=== PATIENT | female | born 1935 | race Caucasian/White ===

== ENCOUNTER → 2016-10-10 | Outpatient (CLI) | payer OTHER, BC | LOC: BHLMT 14:45 | PROVIDERS: ATTEND Internal Medicine Cardiovascular Disease | DX: I48.0 Paroxysmal atrial fibrillation (principal); I10 Essential (primary) hypertension; R06.02 Shortness of breath; Z79.01 Long term (current) use of anticoagulants; G47.30 Sleep apnea, unspecified | CPT/HCPCS: 93005-PO ==

== ENCOUNTER → 2016-11-08 | Outpatient (CLI) | payer OTHER, BC | LOC: BHLMT 14:15 | PROVIDERS: ATTEND Internal Medicine Cardiovascular Disease | DX: I48.0 Paroxysmal atrial fibrillation (principal); R06.09 Other forms of dyspnea; I10 Essential (primary) hypertension; Z79.01 Long term (current) use of anticoagulants; G47.33 Obstructive sleep apnea (adult) (pediatric) | CPT/HCPCS: 93005-PO ==

== ENCOUNTER → 2016-11-25 | Outpatient (CLI) | payer OTHER, BC | LOC: BHFA 14:15 | PROVIDERS: ATTEND Internal Medicine Interventional Cardiology | DX: I48.0 Paroxysmal atrial fibrillation (principal); I10 Essential (primary) hypertension ==

== ENCOUNTER → 2016-12-01 | Outpatient (CLI) | payer OTHER, BC | LOC: BHLMT 13:15 | PROVIDERS: ATTEND Internal Medicine Cardiovascular Disease | DX: I48.0 Paroxysmal atrial fibrillation (principal); R06.02 Shortness of breath; I10 Essential (primary) hypertension | CPT/HCPCS: 93005-PO ==

== ENCOUNTER → 2016-12-12 | Outpatient (CLI) | payer OTHER, BC | LOC: BHLMT 13:00 | PROVIDERS: ATTEND Internal Medicine Cardiovascular Disease | DX: I48.0 Paroxysmal atrial fibrillation (principal); G47.33 Obstructive sleep apnea (adult) (pediatric); I10 Essential (primary) hypertension; Z79.01 Long term (current) use of anticoagulants | CPT/HCPCS: 93005-PO ==

== ENCOUNTER 2016-12-28 11:57 | Day surgery (SDC) | payer OTHER, BC ==
[2016-12-28] MEDS ORDERED: MIDAZOLAM 2 MG/2 ML VIAL IVP ONE (12:01)
[2016-12-28] MEDS ORDERED: PROPOFOL 200 MG/20 ML VIAL IVP ONE (12:01)
[2016-12-28] MEDS ORDERED: BENZOCAINE UNIT DOSE SPRAY HURRICAINE MM ONE (12:01)
[2016-12-28] MEDS ORDERED: NS 500 ML IV ONE (12:01)
[2016-12-28] MEDS ORDERED: fentaNYL 100 MCG/2 ML INJ IVP ONE (12:01)
--- NOTE | 2016-12-28 12:17 | CPEKG ---
Heart Rate: 103 RR Interval: 583 QRSD Interval: 98 QT Interval: 376 QTC Interval: 492 QRS [place]: -70 T Wave [place]: 71 EKG Severity - ABNORMAL ECG - EKG Impression: ATRIAL FIBRILLATION/FLUTTER EKG Impression: LEFT ANTERIOR FASCICULAR BLOCK EKG Impression: LOW VOLTAGE IN FRONTAL LEADS EKG Impression: BORDERLINE PROLONGED QT INTERVAL Electronically Signed By: Joshua Bowden 29-Dec-2016 12:03:47
[2016-12-28] MEDS ORDERED: ATROPINE SULFATE 1 MG/10 ML SYR ONE (12:27)
[2016-12-28 12:47] LABS: ANION GAP 13 mEq/L (8-16); CALCIUM 9.5 mg/dL (8.5-10.4); CARBON DIOXIDE 23 mEq/l (22-31); CHLORIDE 103 mEq/L (97-110); CREATININE 1.7 mg/dL (0.6-1.0); GLOMERULAR FILTRATION RATE 29; GLUCOSE 115 mg/dL (70-100); MAGNESIUM 2.1 mg/dL (1.6-2.3); POTASSIUM 3.9 mEq/L (3.5-5.2); SODIUM 139 mEq/L (134-144)
[2016-12-28 12:49] LABS: INR 1.88 (0.83-1.16); PROTIME(PATIENT) 21.7 SEC (12.0-15.0)
[2016-12-28 12:50] LABS: APTT 29.2 SEC (23.0-38.0)
[2016-12-28] MEDS ORDERED: LIDOCAINE 1% 5 ML SDV ONE (12:59)
--- NOTE | 2016-12-28 13:34 | CPEKG ---
Heart Rate: 76 RR Interval: 789 P-R Interval: 176 QRSD Interval: 92 QT Interval: 432 QTC Interval: 486 P [place]: 68 QRS [place]: -51 T Wave [place]: 12 EKG Severity - ABNORMAL ECG - EKG Impression: SINUS RHYTHM EKG Impression: PROBABLE INFERIOR INFARCT, AGE INDETERMINATE EKG Impression: BORDERLINE PROLONGED QT INTERVAL EKG Impression: IN COMPARISON TO PRIOR ECG, SINUS RHYTHM HAS REPLACED ATRIAL FIB/FLUTTER Electronically Signed By: Joshua Bowden 29-Dec-2016 12:04:11
--- NOTE | 2016-12-28 15:33 | PDTEE1 ---
ZORAN Cardioversion Procedure Procedure: Electrical Cardioversion, Transesophageal Echo Indications: Atrial Fibrillation Consent: Signed and in Chart Anticoagulation: Warfarin Procedural Details: Pads were placed in anterior-posterior position. ZORAN probe was advanced and standard images obtained. There is no evidence of left atrial or left atrial appendage thrombus. Synchronized cardioversion attempt #1: 200J Results: Normal sinus rhythm Conclusions: Successful ZORAN Cardioversion
== END 2016-12-28 14:51 | disposition home or self-care (01) ==
LOC: FCATH 11:57
PROVIDERS: ATTEND Internal Medicine Interventional Cardiology
PROC: 5A2204Z Restoration of Cardiac Rhythm, Single (ICD-10-PCS; principal; 2016-12-28)
PROC: B245ZZ4 Ultrasonography of Left Heart, Transesophageal (ICD-10-PCS; principal; 2016-12-28)
DX: I48.0 Paroxysmal atrial fibrillation (principal); I48.92 Unspecified atrial flutter; I50.9 Heart failure, unspecified; I12.9 Hypertensive chronic kidney disease with stage 1 through stage 4 chronic kidney disease, or unspecified chronic kidney disease; J45.909 Unspecified asthma, uncomplicated; N18.9 Chronic kidney disease, unspecified; G47.33 Obstructive sleep apnea (adult) (pediatric); Z79.01 Long term (current) use of anticoagulants; Z96.651 Presence of right artificial knee joint
CPT/HCPCS: J0461; J2704

== ENCOUNTER → 2017-01-03 | Outpatient (CLI) | payer OTHER, BC | LOC: BHLMT 10:30 | PROVIDERS: ATTEND Internal Medicine Cardiovascular Disease | DX: I10 Essential (primary) hypertension (principal); Z79.01 Long term (current) use of anticoagulants; I48.0 Paroxysmal atrial fibrillation; N18.4 Chronic kidney disease, stage 4 (severe); G47.33 Obstructive sleep apnea (adult) (pediatric) ==

== ENCOUNTER → 2017-01-05 | Outpatient (CLI) | payer OTHER, BC | LOC: BHLMT 14:45 | PROVIDERS: ATTEND Internal Medicine Cardiovascular Disease | DX: I48.0 Paroxysmal atrial fibrillation (principal); I10 Essential (primary) hypertension; G47.33 Obstructive sleep apnea (adult) (pediatric); Z79.01 Long term (current) use of anticoagulants | CPT/HCPCS: 93005-PO ==

== ENCOUNTER → 2017-01-12 | Outpatient (CLI) | payer OTHER, BC | LOC: BHLMT 14:00 | PROVIDERS: ATTEND Internal Medicine Cardiovascular Disease | DX: I48.0 Paroxysmal atrial fibrillation (principal); N18.4 Chronic kidney disease, stage 4 (severe); I10 Essential (primary) hypertension | CPT/HCPCS: 93005-PO ==

== ENCOUNTER 2017-01-13 13:06 | Day surgery (SDC) | payer OTHER, BC ==
[2017-01-13] MEDS ORDERED: BENZOCAINE UNIT DOSE SPRAY HURRICAINE MM ONE (13:15)
[2017-01-13] MEDS ORDERED: PROPOFOL 200 MG/20 ML VIAL IVP ONE (13:15)
[2017-01-13] MEDS ORDERED: fentaNYL 100 MCG/2 ML INJ IVP ONE (13:15)
[2017-01-13] MEDS ORDERED: NS 500 ML IV ONE (13:15)
[2017-01-13] MEDS ORDERED: MIDAZOLAM 2 MG/2 ML VIAL IVP ONE (13:15)
--- NOTE | 2017-01-13 13:35 | CPEKG ---
Heart Rate: 100 RR Interval: 600 P-R Interval: 148 QRSD Interval: 104 QT Interval: 372 QTC Interval: 480 P [place]: 208 QRS [place]: -85 T Wave [place]: 6 EKG Severity - ABNORMAL ECG - EKG Impression: SINUS TACHYCARDIA WITH IRREGULAR RATE 75-114 EKG Impression: nonspecific inferior ST-T changes Electronically Signed By: Pranay Banegas 13-Jan-2017 16:49:11
[2017-01-13 13:57] LABS: INR 2.07 (0.83-1.16); PROTIME(PATIENT) 23.4 SEC (12.0-15.0)
[2017-01-13 13:58] LABS: APTT 28.9 SEC (23.0-38.0)
[2017-01-13 14:24] LABS: ANION GAP 11 mEq/L (8-16); CALCIUM 9.7 mg/dL (8.5-10.4); CARBON DIOXIDE 26 mEq/l (22-31); CHLORIDE 102 mEq/L (97-110); CREATININE 2.1 mg/dL (0.6-1.0); GLOMERULAR FILTRATION RATE 22; GLUCOSE 115 mg/dL (70-100); MAGNESIUM 2.3 mg/dL (1.6-2.3); POTASSIUM 4.1 mEq/L (3.5-5.2); SODIUM 139 mEq/L (134-144)
[2017-01-13] MEDS ORDERED: PROPOFOL 200 MG/20 ML VIAL ONE (15:41)
[2017-01-13] MEDS ORDERED: LIDOCAINE 1% 5 ML SDV ONE (15:41)
[2017-01-13] MEDS ORDERED: ATROPINE SULFATE 1 MG/10 ML SYR ONE (15:49)
--- NOTE | 2017-01-13 16:37 | ECHO ---
[id number] + + [address] : : [place] [address] : : [phone] + + Transesophageal Echocardiographic Report + -------+ :Name: Sinai MO Date: 01/13/2017 03:18 PM : : Hospital Admission Number: [id number] Locati on: CVC: :: 1935 Gender: Female : :Age: 81 yrs Race: WH : :Reason For Study: pre-cardioversion : :History: afib : + -------+ Atria No thrombus is detected in the left atrial appendage. No left atrial mass or thrombus visualized. Injection of contrast documented no interatrial shunt. Mitral Valve The mitral valve is normal in structure and function. There is mild mitral regurgitation. Aortic Valve The aortic valve is trileaflet. There is no aortic insufficiency. Conclusion A 2D transesophageal echocardiogram with Doppler and color flow Doppler was performed. A bubble study was performed without evidence of a interatrial shunt. No thrombus is detected in the left atrial appendage. No left atrial mass or thrombus visualized. Injection of contrast documented no interatrial shunt. There is mild mitral regurgitation. Final Reading Physician: Dr Gaby Palma electronically signed on 01/13/2017 04:36 PM Ordering Physician: Gaby Palma Performed By: Dr Gaby Palma
--- NOTE | 2017-01-13 17:42 | CPR ---
[f rep st] NONINVASIVE CARDIAC PROCEDURE REPORT DATE OF PROCEDURE: 01/13/2017 PROCEDURE: Transesophageal echocardiogram guided cardioversion. INDICATIONS: Symptomatic atrial flutter. COMPLICATIONS: None. DESCRIPTION OF PROCEDURE: N.p.o. status was confirmed, informed consent obtained, and time-out perf ormed. Sedation was provided by Dr. Jauregui of the anesthesia service. Because the patient's INR on December 28 was 1.8, we elected to proceed with ZORAN. The probe was passed with the assistance of the glide scope. Images obtained. There was no intracardiac thrombus. Mild mitral regurgitation. Nor mal LV systolic function. Please see separate report. We elected to proceed with cardioversion. The patient received a single 200 joule synchronized shoc k which converted her from atrial flutter to normal sinus rhythm. 12-lead EKG is pending. CONCLUSION: Successful transesophageal echocardiogram-guided cardioversion. 1. Continue Coumadin, Rythmol, diltiazem. 2. Follow up with Dr. Nava as scheduled. 3. Results discussed with the patient's son. The patient is currently in stable condition. /[id number]/MODL
--- NOTE | 2017-01-16 07:09 | CPEKG ---
Heart Rate: 69 RR Interval: 870 P-R Interval: 192 QRSD Interval: 108 QT Interval: 424 QTC Interval: 455 P [place]: 75 QRS [place]: -61 T Wave [place]: 37 EKG Severity - ABNORMAL ECG - EKG Impression: SINUS RHYTHM EKG Impression: left posterior fascicular block EKG Impression: Low voltage across the precordium. EKG Impression: Intra-atrial conduction delay Electronically Signed By: Pranay Banegas 16-Jan-2017 09:03:24
== END 2017-01-13 17:23 | disposition home or self-care (01) ==
LOC: FCATH 13:06
PROVIDERS: ATTEND Internal Medicine Cardiovascular Disease
PROC: B245ZZ4 Ultrasonography of Left Heart, Transesophageal (ICD-10-PCS; principal; 2017-01-13)
PROC: 5A2204Z Restoration of Cardiac Rhythm, Single (ICD-10-PCS; principal; 2017-01-13)
DX: I48.92 Unspecified atrial flutter (principal); I48.0 Paroxysmal atrial fibrillation; I12.9 Hypertensive chronic kidney disease with stage 1 through stage 4 chronic kidney disease, or unspecified chronic kidney disease; J45.909 Unspecified asthma, uncomplicated; G47.33 Obstructive sleep apnea (adult) (pediatric); N18.4 Chronic kidney disease, stage 4 (severe); Z79.01 Long term (current) use of anticoagulants
CPT/HCPCS: J0461; J2704

== ENCOUNTER → 2017-01-17 | Outpatient (CLI) | payer OTHER, BC | LOC: BHLMT 10:30 | PROVIDERS: ATTEND Internal Medicine Cardiovascular Disease | DX: I48.0 Paroxysmal atrial fibrillation (principal); I50.9 Heart failure, unspecified; I10 Essential (primary) hypertension; N18.4 Chronic kidney disease, stage 4 (severe) | CPT/HCPCS: 93005-PO ==

== ENCOUNTER → 2017-01-19 | Outpatient (CLI) | payer OTHER, BC | LOC: BHLMT 13:30 | PROVIDERS: ATTEND Internal Medicine Cardiovascular Disease | DX: I48.0 Paroxysmal atrial fibrillation (principal); I10 Essential (primary) hypertension; N18.4 Chronic kidney disease, stage 4 (severe); G47.33 Obstructive sleep apnea (adult) (pediatric) | CPT/HCPCS: 93005-PO ==

== ENCOUNTER → 2017-01-27 | Outpatient (CLI) | payer OTHER, BC | LOC: BHLMT 13:30 | PROVIDERS: ATTEND Internal Medicine Cardiovascular Disease | DX: I48.0 Paroxysmal atrial fibrillation (principal); I48.92 Unspecified atrial flutter; Z79.01 Long term (current) use of anticoagulants; G47.33 Obstructive sleep apnea (adult) (pediatric); N18.4 Chronic kidney disease, stage 4 (severe) | CPT/HCPCS: 93005-PO ==

== ENCOUNTER 2017-01-29 09:02 | Emergency (ER) | payer OTHER, BC ==
--- NOTE | 2017-01-29 09:20 | CPEKG ---
Heart Rate: 117 RR Interval: 513 QRSD Interval: 86 QT Interval: 348 QTC Interval: 486 QRS [place]: -64 T Wave [place]: 11 EKG Severity - ABNORMAL ECG - EKG Impression: Atrial flutter Electronically Signed By: Vazquez Gilliland 30-Jan-2017 08:12:59
--- NOTE | 2017-01-29 09:26 | EDPHY ---
HPI/HX/ROS/PE/MDM Narrative: CHIEF COMPLAINT: Irregular heartbeat HPI: This patient is an 81-year-old female with history of atrial fibrillation who presents to the Emergency Department complaining of the sensation of an irregular heartbeat beginning yesterday and remaining persistent to the present. She is followed by Dr. Nava and has was previously taking Cardizem to treat a fib but was switched to amiodarone eight days prior to arrival. She has been compliant with this medication. She has also been cardioverted on numerous occasions which has reportedly been effective. Upon arrival, she complains of mild dyspnea and bilateral pedal edema slightly increased from baseline. She denies chest discomfort, lightheadedness, or any additional complaints. No additional pertinent medical history. REVIEW OF SYSTEMS: Aside from elements discussed in the HPI, a comprehensive 10-point review of systems was reviewed and is negative. PMH: Atrial fibrillation (Dr. Nava) SOCIAL HISTORY: Son at bedside PHYSICAL EXAM: General:Patient is alert, in no acute distress. ENT:Eyes are normal to inspection. ENT inspection normal. Neck: Normal inspection. Full range of motion. Respiratory:No respiratory distress. Breath sounds normal bilaterally. Cardiovascular: Irregular tachycardic. Strong peripheral pulses. Normal cap refill. Abdomen:The abdomen is nontender to palpation. There are no peritoneal signs. There are normal bowel sounds. Back: Normal to inspection. No tenderness to palpation. Skin: Normal color. No rash. Warm and dry. Extremities: 1+ pedal edema bilaterally. Full range of motion. Neuro: Oriented x3. Normal motor function. Normal sensory function. ED Course: 81-year-old female with history of a fib, followed by Dr. Nava, presents for persistent arrhythmia since yesterday. She presents with irregular tachycardia and 1+ bilateral pedal edema. There are no additional acute findings. Will proceed with EKG and labs. Plan for subsequent consultation with Dr. Nava, the patient's cable television program director, to determine his suggested course of treatment. EKG was ordered and interpreted by myself, confirming atrial fibrillation. Please see [employer] system for official reading. Labs reviewed. Troponin is negative. NT-proBNP elevated at 1110. 1053: Dr. Nava, the patient's cable television program director, is at bedside. He would like to cardiovert the patient this morning and has contacted anesthesiology to perform the procedural sedation. 1258: Cardioversion performed by Dr. Nava was successful. The patient has remained in sinus rhythm on the monitor since the procedure. Per Dr. Nava's request, she will be started on Lovanox when discharged. She understands customary return precautions and has instructions to follow-up with Dr. Nava on Monday. She will be discharged home in good condition. - Data Points Laboratory Results: Laboratory Results 01/29/17 09:20 01/29/17 09:20 01/29/17 01/29/17 01/29/17 09:20 09:20 09:20 WBC 6.94 10^3/uL 10^3/uL (3.80-9.50) RBC 4.36 10^6/uL 10^6/uL (4.18-5.33) Hgb 13.6 g/dL g/dL (12.6-16.3) Hct 40.3 % % (38.0-47.0) MCV 92.4 fL fL (81.5-99.8) MCH 31.2 pg pg (27.9-34.1) MCHC 33.7 g/dL g/dL (32.4-36.7) RDW 13.3 % % (11.5-15.2) Plt Count 180 10^3/uL 10^3/uL (150-400) MPV 11.2 fL fL (8.7-11.7) Neut % (Auto) 73.2 % % (39.3-74.2) Lymph % (Auto) 12.7 % L % (15.0-45.0) [place] % (Auto) 11.2 % % (4.5-13.0) Eos % (Auto) 1.6 % % (0.6-7.6) Baso % (Auto) 0.7 % % (0.3-1.7) Nucleat RBC Rel Count 0.0 % % (0.0-0.2) Absolute Neuts (auto) 5.08 10^3/uL 10^3/uL (1.70-6.50) Absolute Lymphs (auto) 0.88 10^3/uL L 10^3/uL (1.00-3.00) Absolute Monos (auto) 0.78 10^3/uL 10^3/uL (0.30-0.80) Absolute Eos (auto) 0.11 10^3/uL 10^3/uL (0.03-0.40) Absolute Basos (auto) 0.05 10^3/uL 10^3/uL (0.02-0.10) Absolute Nucleated RBC 0.00 10^3/uL 10^3/uL (0-0.01) Immature Gran % 0.6 % % (0.0-1.1) Immature Gran # 0.04 10^3/uL 10^3/uL (0.00-0.10) PT 20.1 SEC H SEC (12.0-15.0) INR 1.71 H (0.83-1.16) APTT 27.1 SEC SEC (23.0-38.0) Sodium 144 mEq/L mEq/L (134-144) Potassium 3.9 mEq/L mEq/L (3.5-5.2) Chloride 103 mEq/L mEq/L (97-110) Carbon Dioxide 26 mEq/l mEq/l (22-31) Anion Gap 15 mEq/L mEq/L (8-16) BUN 36 mg/dL H mg/dL (7-23) Creatinine 1.8 mg/dL H mg/dL (0.6-1.0) Estimated GFR 27 Glucose 132 mg/dL H mg/dL (70-100) Calcium 10.0 mg/dL mg/dL (8.5-10.4) Troponin I < 0.012 ng/mL ng/mL (0-0.034) NT-Pro-B Natriuret Pep 1110 pg/mL H pg/mL (0-450) Medications Given: Discontinued Medications Enoxaparin Sodium (Lovenox) 70 mg SC EDNOW ONE Stop: 01/29/17 11:46 Last Admin: 01/29/17 12:05 Dose: 70 mg General Time Seen by Provider: 01/29/17 09:06 Initial Vital Signs: Initial Vital Signs Temperature (C) 36.5 C 01/29/17 09:05 Heart Rate 106 H 01/29/17 09:05 Respiratory Rate 18 01/29/17 09:05 Blood Pressure 143/91 H 01/29/17 09:05 O2 Sat (%) 97 01/29/17 09:05 O2 Delivery Mode Room Air Allergies/Adverse Reactions: flecainide Allergy (Verified 01/13/17 14:11) Home Medications: Medication Instructions Recorded Coumadin 2 mg PO DAILY 12/28/16 Lasix 40 mg PO 12/28/16 Tylenol 650 mg PO Q6 PRN 12/28/16 Ventolin Hfa Inhaler 2 puffs IH Q4 PRN 12/28/16 Vitamin D3 1,000 iunits PO DAILY 12/28/16 Departure - Departure Disposition: Home, Routine, Self-Care Clinical Impression: Atrial fibrillation status post cardioversion Condition: Good Instructions: A-fib (Atrial Fibrillation) (ED) Additional Instructions: 1. Follow-up with Dr. Nava as discussed this week for reevaluation. 2. Take one dose of 70mg Lovanox for the next two days until your planned appointment. Continue to take your other medications as prescribed. 3. Return to the Emergency Department with return of your sensation of irregular heartbeat that does not quickly subside on its own, or if you experience: chest pain, palpitations, lightheadedness, fainting, or for other serious concerns. Referrals: Jensen Nava MD [Medical Doctor] - As per Instructions Report Scribed for: Gian Nowak Report Scribed by: Ivon Amado Date of Report: 01/29/17 Time of Report: 09:26 Physician Review and Approval Statement: Portions of this note were transcribed by an ED scribe. I personally performed the history, physical exam, and medical decision making; and confirm the accuracy of the information in the transcribed note.
[2017-01-29 09:33] LABS: % IMMATURE GRANULYOCYTES 0.6 % (0.0-1.1); ABSOLUTE IMMATURE GRANULOCYTES 0.04 10^3/uL (0.00-0.10); ADD DIFF? NO; ADD MORPH? NO; ADD SCAN? NO; ATYPICAL LYMPHOCYTE FLAG 0 (0-99); FRAGMENT RBC FLAG 0 (0-99); HEMATOCRIT 40.3 % (38.0-47.0); HEMOGLOBIN 13.6 g/dL (12.6-16.3); LEFT SHIFT FLG 0 (0-99); LIPEMIA HEMOLYSIS FLAG 80 (0-99); MEAN CELL HEMOGLOBIN 31.2 pg (27.9-34.1); MEAN CELL HEMOGLOBIN CONCENTR. 33.7 g/dL (32.4-36.7); MEAN CELL VOLUME 92.4 fL (81.5-99.8); MEAN PLATELET VOLUME 11.2 fL (8.7-11.7); PLATELET CLUMPS FLAG 10 (0-99); PLATELET COUNT 180 10^3/uL (150-400); RED BLOOD CELL COUNT 4.36 10^6/uL (4.18-5.33); RED CELL DISTRIBUTION WIDTH 13.3 % (11.5-15.2)
[2017-01-29 09:42] LABS: ANION GAP 15 mEq/L (8-16); CARBON DIOXIDE 26 mEq/l (22-31); CHLORIDE 103 mEq/L (97-110); CREATININE 1.8 mg/dL (0.6-1.0); GLOMERULAR FILTRATION RATE 27; GLUCOSE 132 mg/dL (70-100); POTASSIUM 3.9 mEq/L (3.5-5.2); SODIUM 144 mEq/L (134-144)
[2017-01-29 09:43] LABS: INR 1.71 (0.83-1.16); PROTIME(PATIENT) 20.1 SEC (12.0-15.0)
[2017-01-29 09:44] LABS: APTT 27.1 SEC (23.0-38.0)
[2017-01-29 09:54] LABS: TROPONIN I < 0.012 ng/mL (0-0.034)
--- NOTE | 2017-01-29 11:13 | PDCONSULT ---
[facility] Note: Cardiology. Cardiology Progress Note Chief Complaint: Fatigue, palpitations, dyspnea and history of atrial fibrillation. Assessment/Plan: Assessment: She has a history of atrial fibrillation as defined above. We have tried multiple previous antiarrhythmic medications most recently amiodarone. She has been partially loaded at the present time however is back in atrial fibrillation with significant symptomatology. Unfortunately, her INR is subtherapeutic. Plan: 1. We will plan for a ZORAN cardioversion today. 2. To help facilitate the ZORAN cardioversion she will be given Lovenox injections given the fact that her INR is subtherapeutic. 3. If she fails to maintain sinus rhythm with an improvement in her symptoms with this therapeutic strategy, we will consider AV node ablation and pacing. This has been discussed with her in the past. 01/29/17 11:22 Subjective: The patient is well known to me from my outpatient clinic. She has known paroxysmal atrial fibrillation. She has failed multiple previous antiarrhythmic medications including flecainide and Rythmol. She has been on amiodarone for about a week now. She states that she has been feeling poorly. She has symptoms of fatigue and exertional dyspnea. She does not have palpitations however thinks that she has been in atrial fibrillation for about a week now. As result, she called our answering service. She was advised to come to the emergency department. Reviewed/Discussed With: family Objective: Vital Signs (8 Hrs) Temp Pulse Resp BP Pulse Ox 01/29/17 10:00 36.9 C 92 19 140/101 H 95 01/29/17 09:05 36.5 C 106 H 18 143/91 H 97 Intake/Output (24 Hrs) 01/28/17 01/29/17 01/30/17 05:59 05:59 05:59 Other: Weight 73.482 kg Laboratory Tests 01/29/17 01/29/17 09:20 09:20 INR 1.71 H Troponin I < 0.012 NT-Pro-B Natriuret Pep 1110 H Result Diagrams: 01/29/17 09:20 01/29/17 09:20 Cardiac Labs: Cardiac Lab Results (72 Hrs) 01/29/17 09:20 Troponin I < 0.012 EKG: the electrocardiogram demonstrates atrial fibrillation with a heart rate of 117 beats per minute with minor nonspecific ST and T changes. Telemetry: Atrial fibrillation.
[2017-01-29] MEDS ORDERED: ENOXAPARIN 60 MG/0.6 ML SYR SC ONE (11:15)
[2017-01-29] MEDS ORDERED: NS 1,000 ML IV SCH (11:15)
[2017-01-29] MEDS ORDERED: ENOXAPARIN 80 MG/0.8 ML SYR SC ONE (11:45)
[2017-01-29] MEDS ORDERED: MIDAZOLAM 2 MG/2 ML VIAL ONE (12:23)
--- NOTE | 2017-01-29 13:11 | CPIP ---
[f rep st] INVASIVE CARDIAC PROCEDURE DATE OF PROCEDURE: 01/29/2017 INDICATIONS: The patient is 81 years old. She has known paroxysmal atrial fibrillation. She prese nts to the emergency department with symptoms of fatigue, worsening exertional dyspnea, and is found to be in atrial fibrillation. PROCEDURE: Transesophageal echocardiogram, cardioversion. TECHNIQUE: Following informed consent, and with the assistance of Anesthesiology, the patient was s edated with propofol. The ZORAN probe was passed, images were obtained, and the probe was removed. F ollowing the procedure, the patient was cardioverted with a single 150 joule shock. There is a full and separately dictated report for the ZORAN. COMPLICATIONS: None. DISPOSITION: She will be monitored here in the emergency department, discharged home later today. /[id number]/MODL
[2017-01-29 15:11] VITALS: BP 117/63; PULSE 67; TEMP 97.7; O2SAT 100
[2017-01-29 15:17] VITALS: RESP 20
== END 2017-01-29 15:40 | disposition home or self-care (01) ==
PROC: 3E023GC Introduction of Other Therapeutic Substance into Muscle, Percutaneous Approach (ICD-10-PCS; principal; 2017-01-29)
PROC: 5A2204Z Restoration of Cardiac Rhythm, Single (ICD-10-PCS; principal; 2017-01-29)
PROC: B245ZZ4 Ultrasonography of Left Heart, Transesophageal (ICD-10-PCS; principal; 2017-01-29)
DX: I48.91 Unspecified atrial fibrillation (principal); R79.1 Abnormal coagulation profile; Z79.01 Long term (current) use of anticoagulants
CPT/HCPCS: 92960; 93005; 93312; 96372; 99284; J1650; J2250

== ENCOUNTER → 2017-02-08 | Outpatient (CLI) | payer OTHER, BC | LOC: BHFA 10:00 | PROVIDERS: ATTEND Internal Medicine Cardiovascular Disease | DX: I48.0 Paroxysmal atrial fibrillation (principal) ==

== ENCOUNTER 2017-03-08 11:21 | Observation (INO) | payer OTHER, BC ==
[~2017-03-08 11:21] MED LIST: BACITRACIN IRRIGATION/NS 50,000 UNITS/1,000 ML BTL IRR ONE; DIAZEPAM 5 MG TAB PO ONE; NS 1,000 ML IV ONE; ceFAZolin 2 GM/DEXTROSE 100 ML IV ONE; diphenhydrAMINE 25 MG CAP PO ONE
[2017-03-08 12:05] LABS: % IMMATURE GRANULYOCYTES 0.2 % (0.0-1.1); ABSOLUTE IMMATURE GRANULOCYTES 0.01 10^3/uL (0.00-0.10); ADD DIFF? NO; ADD MORPH? NO; ADD SCAN? NO; ATYPICAL LYMPHOCYTE FLAG 0 (0-99); FRAGMENT RBC FLAG 0 (0-99); HEMATOCRIT 37.5 % (38.0-47.0); HEMOGLOBIN 12.8 g/dL (12.6-16.3); LEFT SHIFT FLG 0 (0-99); LIPEMIA HEMOLYSIS FLAG 90 (0-99); MEAN CELL HEMOGLOBIN 31.2 pg (27.9-34.1); MEAN CELL HEMOGLOBIN CONCENTR. 34.1 g/dL (32.4-36.7); MEAN CELL VOLUME 91.5 fL (81.5-99.8); MEAN PLATELET VOLUME 11.1 fL (8.7-11.7); PLATELET CLUMPS FLAG 0 (0-99); PLATELET COUNT 176 10^3/uL (150-400)
[2017-03-08] MEDS ORDERED: LIDOCAINE 1% 300 MG/30 ML SDV ONE (12:08)
--- NOTE | 2017-03-08 12:08 | CPEKG ---
Heart Rate: 75 RR Interval: 800 P-R Interval: 156 QRSD Interval: 86 QT Interval: 416 QTC Interval: 465 P [place]: 77 QRS [place]: -48 T Wave [place]: -8 EKG Severity - ABNORMAL ECG - EKG Impression: SINUS RHYTHM EKG Impression: INFERIOR INFARCT, AGE INDETERMINATE EKG Impression: LEFT ATRIAL ENLARGEMENT Electronically Signed By: Jacob Fleming 08-Mar-2017 21:00:13
[2017-03-08] MEDS ORDERED: LIDO/EPI 1% **for epidural** 30 ML SDV ONE (12:09)
[2017-03-08] MEDS ORDERED: BUPIVACAINE 0.5% 30 ML SDV ONE (12:09)
[2017-03-08 12:15] LABS: INR 1.84 (0.83-1.16); PROTIME(PATIENT) 21.3 SEC (12.0-15.0)
[2017-03-08 12:18] LABS: ANION GAP 14 mEq/L (8-16); CALCIUM 10.2 mg/dL (8.5-10.4); CARBON DIOXIDE 27 mEq/l (22-31); CHLORIDE 97 mEq/L (97-110); CREATININE 2.3 mg/dL (0.6-1.0); GLOMERULAR FILTRATION RATE 20; GLUCOSE 117 mg/dL (70-100); POTASSIUM 3.4 mEq/L (3.5-5.2); SODIUM 138 mEq/L (134-144)
[2017-03-08] MEDS ORDERED: MIDAZOLAM 2 MG/2 ML VIAL ONE (12:21)
[2017-03-08] MEDS: ACETAMINOPHEN 325 MG TAB PO PRN ×2 (18:27→23:46)
[2017-03-08] MEDS: LOTEPREDNOL 0.5% OPHT GEL 5GM EACHEYE SCH (19:46)
[2017-03-09 05:09] LABS: % IMMATURE GRANULYOCYTES 0.2 % (0.0-1.1); ABSOLUTE IMMATURE GRANULOCYTES 0.01 10^3/uL (0.00-0.10); ADD DIFF? NO; ADD MORPH? NO; ADD SCAN? NO; ATYPICAL LYMPHOCYTE FLAG 10 (0-99); FRAGMENT RBC FLAG 0 (0-99); HEMATOCRIT 33.4 % (38.0-47.0); HEMOGLOBIN 11.2 g/dL (12.6-16.3); LEFT SHIFT FLG 0 (0-99); LIPEMIA HEMOLYSIS FLAG 80 (0-99); MEAN CELL HEMOGLOBIN 30.9 pg (27.9-34.1); MEAN CELL HEMOGLOBIN CONCENTR. 33.5 g/dL (32.4-36.7); MEAN CELL VOLUME 92.3 fL (81.5-99.8); MEAN PLATELET VOLUME 11.5 fL (8.7-11.7); PLATELET CLUMPS FLAG 0 (0-99); PLATELET COUNT 146 10^3/uL (150-400); RED BLOOD CELL COUNT 3.62 10^6/uL (4.18-5.33); RED CELL DISTRIBUTION WIDTH 12.9 % (11.5-15.2)
[2017-03-09 05:27] LABS: ANION GAP 10 mEq/L (8-16); CALCIUM 9.8 mg/dL (8.5-10.4); CARBON DIOXIDE 28 mEq/l (22-31); CHLORIDE 101 mEq/L (97-110); CREATININE 1.9 mg/dL (0.6-1.0); GLOMERULAR FILTRATION RATE 25; GLUCOSE 77 mg/dL (70-100); POTASSIUM 3.7 mEq/L (3.5-5.2); SODIUM 139 mEq/L (134-144)
[2017-03-09] MEDS: ACETAMINOPHEN 325 MG TAB PO PRN (05:34)
[2017-03-09 07:41] VITALS: BP 116/61; PULSE 60; RESP 18; TEMP 97.9; O2SAT 100
[2017-03-09] MEDS: LOTEPREDNOL 0.5% OPHT GEL 5GM EACHEYE SCH (07:51)
--- NOTE | 2017-03-09 08:29 | CPEKG ---
Heart Rate: 63 RR Interval: 952 P-R Interval: 176 QRSD Interval: 86 QT Interval: 464 QTC Interval: 476 QRS [place]: -45 T Wave [place]: 15 EKG Severity - ABNORMAL ECG - EKG Impression: ATRIAL-PACED RHYTHM EKG Impression: LEFT AXIS DEVIATION Electronically Signed By: Jacob Fleming 10-Mar-2017 07:24:19
[2017-03-09] MEDS ORDERED: HYDROCHLOROTHIAZIDE 25 MG TAB PO SCH (09:00)
[2017-03-09] MEDS ORDERED: AMIODARONE HCL 200 MG TAB PO SCH (09:00)
--- NOTE | 2017-03-09 12:07 | GDS ---
[f rep st] DISCHARGE SUMMARY PRIMARY CHIEF METER READER: Dr. Keith Nava. The patient is also under the care of Dr. David Sheffield. DISCHARGE DIAGNOSES: 1. Paroxysmal atrial fibrillation. 2. Paroxysmal atrial flutter. 3. Chronic kidney disease. 4. Hypertension. 5. Obstructive sleep apnea. 6. Status post dual-chamber Biotronik pacemaker. HOSPITAL COURSE: For detailed H and P, please see prior dictation. Briefly, the patient is an 81-y ear-old female with a history of paroxysmal atrial fibrillation which was diagnosed approximately 5 months back. At that time, she noticed decreased energy and fatigue. She was found to be in atrial flutter and underwent a cardioversion by Dr. Nava on January 19. Since then, she has failed multiple antiarrhythmic medications and therefore was started on amiodarone. She complained of dry eye and GI upset but continued on a low dose of the medication. Ultimately, she decided she would like to p roceed with a pacer placement and AV maeve ablation. She had a dual-chamber Biotronik pacemaker pa[place] me[place] by Dr. David Sheffield on 03/08/2017. The procedure was uncomplicated. The following morning, she denied any significant discomfort over the pacemaker site. She was monitored on telemetry and is c urrently in sinus rhythm with atrial pacing. Her device was interrogated the day of discharge and w as working appropriately. Her chest x-ray was negative for pneumothorax. Her creatinine is stable at 1.9. PHYSICAL EXAMINATION: GENERAL: The patient appears in no acute distress. VITALS: Blood pressure 116/61, heart rate 60, oxygen saturation of 100% on 3 L, afebrile. LUNGS: Clear to auscultation. No wheezes, rhonchi, or crackles auscultated. CARDIAC: Regular rate and rhythm without any signifi cant murmurs, rubs, or gallops appreciated. CHEST WALL: Her pacer site is clean and intact without any evidence of infection or hematoma. LABORATORY: INR 1.84. DISCHARGE MEDICATIONS: Her medications are unchanged. She will continue Coumadin 1 mg alternating with 2 mg daily, HCTZ 25 mg daily, amiodarone 200 mg daily, Lotemax eyedrops b.i.d., Lasix 20 mg odalis ry other day, Tylenol p.r.n., albuterol p.r.n., vitamin D3 daily. PLAN: The patient is currently stable and ready for discharge home. She has been given pacer preca utions. She will follow up for a wound check and pacer interrogation on March 15 as scheduled. He r Coumadin has been resumed. Greater than 30 minutes was spent coordinating the patient's care today. /[id number]/MODL
[2017-03-09] MEDS ORDERED: WARFARIN SODIUM 2 MG TAB PO SCH (16:00)
--- NOTE | 2017-03-10 09:35 | EPPROC ---
Electrophysiology Procedure Note: PROCEDURE PERFORMED: Implantation of an A/V Pacemaker Fluoroscopy INDICATION: This is a 81 yr old with symptomatic AF. Multiple AV maeve agents as well as antiarrhythmics were used. However, pt either had no impact on her symptoms or had side effects from medications and hence it was decided to implant a dual chamber pacemaker with plan to perform AV maeve ablation in the future. PROCEDURE NOTE: Patient presented to the cardiac catheterization laboratory in a fasting, post absorptive state. Cardiac roofing laborer nurse administered moderate sedation. The left infraclavicular area was prepped and draped in the usual sterile fashion. Lidocaine plus bupivacaine was used for local anesthesia. Using a combination of blunt and sharp dissection and electrocautery, the dissection was carried down to the prepectoral fascia. All bleeding was controlled with electrocautery. Fluoroscopy was utilized during the entire procedure for venous access and placement of the leads. Using the usual technique, left cephalic vein was accessed and a glidewire was placed. Through this initially a 9F and later a 7F sheath was passed. Placement of the guidewires into the venous system was confirmed by low- pressure blood return and also by visualizing the guidewires advancing into the inferior vena cava. A purse string suture was applied around the guidewires. An active fixation ventricular lead was advanced into the right ventricular apex and screwed in place. An active fixation atrial lead was advanced into the right atrial appendage and screwed in place. The peel away sheaths were removed. Pacing thresholds, sensing parameters and lead impedances were measured. There was no diaphragmatic stimulation at maximum output. The leads were sutured to the prepectoral fascia with 3 nonabsorbable sutures each. The pocket was created and it was flushed using antibiotic solution. It was inspected for any bleeding. The leads were attached to the pacemaker securely. The pacemaker was inserted into the pocket and secured in place with a nonabsorbable suture. Fluoroscopy was performed in KOHLER and BELGI[place] planes to verify right-sided placement of the leads. Also fluoroscopy of the pacemaker pocket was performed. The pacemaker pocket was closed in 3 layers with absorbable vicryl sutures. Steristrips were placed. Appropriate dressing was applied. The patient left the cardiac catheterization laboratory in stable condition. Serial Numbers: Device: Biotronik Edora 8 [address] Flores SN [id number] Atrial Lead: Biotronik Solia S 45 SN [id number] Ventricular Lead: Biotronik Solia S53 SN [id number] Stimulation Thresholds & Impedance Measurements: Atrial Lead 5.1mV, 0.7@0.4ms, 456 Ohms Ventricular Lead 6.5mV, 1@0.4ms, 626Ohms Ned Pacing Parameters Pacing mode: DDD CLS Lower rate: 60 Upper tracking rate: 130 Upper sensor rate: 130
== END 2017-03-09 13:05 | disposition home or self-care (01) ==
LOC: FCATH 11:21 → F2W 14:07
PROVIDERS: ADMIT Internal Medicine Cardiovascular Disease; ATTEND Internal Medicine Cardiovascular Disease
PROC: 0JH606Z Insertion of Pacemaker, Dual Chamber into Chest Subcutaneous Tissue and Fascia, Open Approach (ICD-10-PCS; principal; 2017-03-08)
PROC: 02H63JZ Insertion of Pacemaker Lead into Right Atrium, Percutaneous Approach (ICD-10-PCS; principal; 2017-03-08)
PROC: 02HK3JZ Insertion of Pacemaker Lead into Right Ventricle, Percutaneous Approach (ICD-10-PCS; principal; 2017-03-08)
DX: I48.0 Paroxysmal atrial fibrillation (principal); I48.92 Unspecified atrial flutter; N18.4 Chronic kidney disease, stage 4 (severe); I12.9 Hypertensive chronic kidney disease with stage 1 through stage 4 chronic kidney disease, or unspecified chronic kidney disease; G47.33 Obstructive sleep apnea (adult) (pediatric); E55.9 Vitamin D deficiency, unspecified; Z79.01 Long term (current) use of anticoagulants; Z96.659 Presence of unspecified artificial knee joint
CPT/HCPCS: 33208; 71020; 93005; C1769; C1785; C1898; J0690; J2250

== ENCOUNTER 2017-03-11 14:23 | Emergency (ER) | payer OTHER, BC ==
[2017-03-11 14:29] VITALS: BP 140/85; PULSE 78; RESP 18; TEMP 98.4; O2SAT 95
--- NOTE | 2017-03-11 14:59 | EDPHY ---
H & P Time Seen by Provider: 03/11/17 14:53 HPI/ROS: HPI: Ms. Rajan is a 81 yrs, female who presents with Chief Complaint: wound check Location: pacemaker site Quality: wound check Duration: 1 day Signs and Symptoms: No redness, no warmth, no bleeding, no pain at site, positive dark scant drainage Timing: intermittent Severity: mild Context: History approximates the atrial fib diagnosis less than 6 months ago she has noted decreased energy and fatigue. She underwent a cardioversion by Dr. Nava on January 19 she has failed multiple antiarrhythmic medications and it was ultimately decided to have a dual-chamber Biotronik pacemaker placed on 03/08/[address] Sheffield. She presents today with complaints of 1 day drainage that she describes as dark brown in color. She would like us to do a wound check and determine if she has an infection. She already has an appointment on March 15 for wound check with Dr. Sheffield Modifying Factors: Comment: ROS: Eyes: No blurred vision Respiratory: No shortness of breath, no cough Cardiovascular: No chest pain Gastrointestinal: No nausea, no vomiting no diarrhea Genitourinary: No dysuria Extremities: No myalgias Neurologic: No weakness, no numbness Skin: No rashes Hematologic: No bruising, no bleeding MEDICAL/SURGICAL HISTORY: paroxysmal atrial fibrillation, paroxysmal atrial flutter, chronic kidney disease, hypertension, obstructive sleep apnea Smoking Status: Never smoked Physical Exam: CONSTITUTIONAL: Pleasant elderly white female who is well appearing, awake and alert, no obvious distress HEENT: Atraumatic and normocephalic, PERRL, EOMI. Tympanic membranes clear. Oropharynx clear, no exudate and moist pink mucosa. Airway patent. No lymphadenopathy. No meningismus. Cardiovascular: Normal S1/S2, regular rate, regular rhythm, without murmur rub or gallop. PULMONARY/CHEST: Symmetrical and nontender. Clear to auscultation bilaterally Good air movement. No accessory muscle usage. ABDOMEN: Soft, nondistended, nontender, no rebound, no guarding, no peritoneal signs, no masses or organomegaly. No CVAT. EXTREMITIES: 2/2 pulses, no deformities, no clubbing, no cyanosis or edema. NEUROLOGICAL: no focal neuro deficits. GCS 15. SKIN: Warm and dry, left anterior chest pacemaker site; outer dressing scant dark brown serosanguinous dranage; incision well approximated; mild inflammation ; no warmth; no discharge. Constitutional: Initial Vital Signs Temperature (C) 36.9 C 03/11/17 14:26 Heart Rate 78 03/11/17 14:26 Respiratory Rate 18 03/11/17 14:26 Blood Pressure 140/85 H 03/11/17 14:26 O2 Sat (%) 95 03/11/17 14:26 O2 Delivery Mode Room Air Allergies/Adverse Reactions: flecainide Allergy (Verified 01/13/17 14:11) Home Medications: Medication Instructions Recorded Acetaminophen [Tylenol 325mg (*)] 650 mg PO Q6 PRN 12/28/16 Albuterol Sulfate [Ventolin Hfa] 8 gm IH DAILY PRN 12/28/16 Cholecalciferol Vit D3 [Vitamin D3 1,000 units PO DAILY 12/28/16 (*)] Furosemide [Lasix 20 MG (*)] 20 mg PO Q2D 12/28/16 Warfarin Sodium [Coumadin 2MG (*)] 2 mg PO Q2D 12/28/16 Amiodarone HCl [Pacerone (*)] 200 mg PO DAILY 03/08/17 Hydrochlorothiazide [HCTZ (*)] 25 mg PO DAILY 03/08/17 Loteprednol 0.5% [Lotemax0.5% Gel] 1 drops EACHEYE BID 03/08/17 Warfarin Sodium [Coumadin 1MG (*)] 1 mg PO Q2D 03/08/17 Medical Decision Making ED Course/Re-evaluation: Wound does not show any signs of infection or dehiscence. Dressing change Steri-Strips with Mastisol reapplied, ABD pad and Tegaderm placed. Spoke with Dr. Sheffield via phone regarding wound check and he agrees with the current plan. Departure - Departure Disposition: Home, Routine, Self-Care Clinical Impression: Pacemaker, Encounter for wound re-check Condition: Good Additional Instructions: Keep dressing in place and dry until wound check on March 15. Referrals: UNKNOWN,PCP [Other] - As per Instructions David Sheffield MD [Medical Doctor] - 03/15/17
== END 2017-03-11 15:09 | disposition home or self-care (01) ==
DX: T82.198A Other mechanical complication of other cardiac electronic device, initial encounter (principal); Z79.01 Long term (current) use of anticoagulants; Y82.8 Other medical devices associated with adverse incidents

== ENCOUNTER 2017-03-29 11:13 | Observation (INO) | payer OTHER, BC ==
[2017-03-29] MEDS ORDERED: NS 1,000 ML IV ONE (11:32)
--- NOTE | 2017-03-29 11:48 | CPEKG ---
Heart Rate: 78 RR Interval: 769 P-R Interval: 160 QRSD Interval: 82 QT Interval: 388 QTC Interval: 442 QRS [place]: -41 T Wave [place]: 7 EKG Severity - ABNORMAL ECG - EKG Impression: ATRIAL-PACED RHYTHM EKG Impression: LEFT AXIS DEVIATION Electronically Signed By: Sammy Montalvo 29-Mar-2017 14:08:22
[2017-03-29 12:08] LABS: % IMMATURE GRANULYOCYTES 0.4 % (0.0-1.1); ABSOLUTE IMMATURE GRANULOCYTES 0.02 10^3/uL (0.00-0.10); ADD DIFF? NO; ADD MORPH? NO; ADD SCAN? NO; ATYPICAL LYMPHOCYTE FLAG 0 (0-99); FRAGMENT RBC FLAG 0 (0-99); HEMATOCRIT 34.8 % (38.0-47.0); HEMOGLOBIN 11.7 g/dL (12.6-16.3); LEFT SHIFT FLG 0 (0-99); LIPEMIA HEMOLYSIS FLAG 80 (0-99); MEAN CELL HEMOGLOBIN CONCENTR. 33.6 g/dL (32.4-36.7); MEAN CELL VOLUME 92.3 fL (81.5-99.8); MEAN PLATELET VOLUME 11.2 fL (8.7-11.7); PLATELET CLUMPS FLAG 0 (0-99); PLATELET COUNT 133 10^3/uL (150-400); RED BLOOD CELL COUNT 3.77 10^6/uL (4.18-5.33); RED CELL DISTRIBUTION WIDTH 13.5 % (11.5-15.2)
[2017-03-29 12:18] LABS: INR 1.28 (0.83-1.16)
[2017-03-29 12:19] LABS: APTT 26.6 SEC (23.0-38.0)
--- NOTE | 2017-03-29 12:19 | PDHPUP ---
History & Physical Update H&P update statement: This history and physical update is based on an assessment of the patient which was completed after admission or registration (within 24 hours), but prior to the surgery/procedure. H&P update: H&P reviewed & patient examined, no change in patient's condition since H&P completed
[2017-03-29] MEDS ORDERED: BUPIVACAINE 0.5% 30 ML SDV ONE (12:38)
[2017-03-29] MEDS ORDERED: LIDOCAINE 1% 300 MG/30 ML SDV ONE (12:38)
[2017-03-29] MEDS ORDERED: HEPARIN 10,000 UNIT/10 ML MDV ONE (12:38)
--- NOTE | 2017-03-29 12:47 | PDANEPAE ---
ANE History of Present Illness AV node ablation ANE Past Medical History - Cardiovascular History Hx Hypertension: Yes Hx Arrhythmias: Yes Hx Chest Pain: No Hx Coronary Artery / Peripheral Vascular Disease: No Hx CHF / Valvular Disease: No Hx Palpitations: No - Pulmonary History Hx COPD: No Hx Asthma/Reactive Airway Disease: No Hx Recent Upper Respiratory Infection: No Hx Oxygen in Use at Home: No Hx Sleep Apnea: Yes - Endocrine History Hx Diabetes: No Hypothyroid: No Hyperthyroid: No - Renal History Hx Renal Disorders: No - Liver History Hx Hepatic Disorders: No - Neurological & Psychiatric Hx Hx Neurological and Psychiatric Disorders: No - Cancer History Hx Cancer: No ANE Review of Systems Review of systems is: negative - Exercise capacity Exercise capacity: <4 METS ANE Patient History - Allergies Allergies/Adverse Reactions: flecainide Allergy (Verified 01/13/17 14:11) - Home Medications Home Medications: Acetaminophen [Tylenol 325mg (*)] 650 mg PO DAILY PRN 12/28/16 [Last Taken Unknown] Cholecalciferol Vit D3 [Vitamin D3 (*)] 1,000 units PO DAILY 12/28/16 [Last Taken 03/27/17] Furosemide [Lasix 20 MG (*)] 20 mg PO Q2D 12/28/16 [Last Taken 03/27/17] Warfarin Sodium [Coumadin 2MG (*)] 2 mg PO Q2D 12/28/16 [Last Taken 03/23/17] Amiodarone HCl [Pacerone (*)] 200 mg PO DAILY 03/08/17 [Last Taken 03/19/17] Hydrochlorothiazide [HCTZ (*)] 25 mg PO DAILY 03/08/17 [Last Taken 03/27/17] Loteprednol 0.5% [Lotemax0.5% Gel] 1 drops EACHEYE DAILY 03/08/17 [Last Taken ] Warfarin Sodium [Coumadin 1MG (*)] 1 mg PO Q2D 03/08/17 [Last Taken 03/24/17] Albuterol [Proventil Inhaler HFA (*)] 1 - 2 puffs IH DAILY PRN 03/29/17 [Last Taken Unknown] - NPO status NPO Status: no food or drink >8 hours - Anes Hx Anes Hx: no prior problems - Smoking Hx Smoking Status: Never smoked Marijuana use: No - Alcohol Use Alcohol Use: Rarely - Family Anes Hx Family Anes Hx: none ANE Labs/Vital Signs - Labs Result Diagrams: 03/29/17 11:58 03/29/17 11:58 - Vital Signs Height: 157 cm Weight: 71.2 kg ANE Physical Exam - Airway Neck exam: FROM Mallampati Score: Class 2 - Pulmonary Pulmonary: no respiratory distress - Cardiovascular Cardiovascular: regular rate and rhythym - ASA Status ASA Status: III
[2017-03-29] MEDS ORDERED: PROPOFOL 200 MG/20 ML VIAL ONE (12:53)
[2017-03-29] MEDS ORDERED: fentaNYL 100 MCG/2 ML INJ ONE (12:53)
[2017-03-29] MEDS ORDERED: ROCURONIUM 50 MG/5 ML VIAL ONE (12:53)
[2017-03-29 12:57] LABS: ANION GAP 12 mEq/L (8-16); CALCIUM 9.7 mg/dL (8.5-10.4); CARBON DIOXIDE 25 mEq/l (22-31); CHLORIDE 103 mEq/L (97-110); CREATININE 1.7 mg/dL (0.6-1.0); GLOMERULAR FILTRATION RATE 29; GLUCOSE 111 mg/dL (70-100); MAGNESIUM 2.1 mg/dL (1.6-2.3); POTASSIUM 4.1 mEq/L (3.5-5.2); SODIUM 140 mEq/L (134-144)
[2017-03-29] MEDS ORDERED: ISOPROTERENOL HCL/D5W 0.2 MG/50 ML BAG IV ONE (13:45)
[2017-03-29] MEDS ORDERED: SUGAMMADEX SODIUM 200 MG/2 ML VIAL IVP ONE (14:22)
[2017-03-29] MEDS ORDERED: PHENYLEPHRINE HCL 100 MCG/ML SYR ONE (14:22)
[2017-03-29] MEDS ORDERED: OXYCODONE/APAP 5/325 TAB PO PRN ×2 (14:35→14:40)
[2017-03-29] MEDS ORDERED: ACETAMINOPHEN 325 MG TAB PO PRN ×2 (14:35→14:37)
[2017-03-29] MEDS ORDERED: ONDANSETRON 4 MG/2 ML VIAL IVP PRN ×2 (14:35→14:40)
[2017-03-29] MEDS ORDERED: ALBUTEROL 60 PUFFS/8 GM MDI IH PRN (14:37)
[2017-03-29] MEDS ORDERED: NALOXONE HCL 0.4 MG/ML INJ IVP PRN (14:40)
[2017-03-29] MEDS ORDERED: ACETAMINOPHEN 500 MG TAB PO PRN (14:40)
[2017-03-29] MEDS ORDERED: fentaNYL 100 MCG/2 ML INJ IVP PRN (14:40)
[2017-03-29] MEDS ORDERED: ATROPINE SULFATE 1 MG/10 ML SYR ONE (14:41)
--- NOTE | 2017-03-29 14:41 | POSTANESTH ---
Post Anesthetic Evaluation Cardiovascular Status: Normal, Stable Respiratory Status: Normal, Stable Level of Consciousness/Mental Status: Can Participate in Eval Pain Control: Adequate, Prn Tx Ordered Nausea/Vomiting Control: Adequate, Prn Tx Ordered Complications Possibly Related to Anesthesia: None Noted
[2017-03-29 15:22] LABS: ANION GAP 10 mEq/L (8-16); CALCIUM 8.8 mg/dL (8.5-10.4); CARBON DIOXIDE 25 mEq/l (22-31); CHLORIDE 106 mEq/L (97-110); CREATININE 1.7 mg/dL (0.6-1.0); GLOMERULAR FILTRATION RATE 29; GLUCOSE 109 mg/dL (70-100); MAGNESIUM 1.9 mg/dL (1.6-2.3); POTASSIUM 3.8 mEq/L (3.5-5.2); SODIUM 141 mEq/L (134-144)
--- NOTE | 2017-03-29 15:37 | CPEKG ---
Heart Rate: 102 RR Interval: 588 P-R Interval: 188 QRSD Interval: 134 QT Interval: 456 QTC Interval: 595 QRS [place]: -80 T Wave [employer]: 77 EKG Severity - ABNORMAL ECG - EKG Impression: ATRIAL-VENTRICULAR DUAL-PACED COMPLEXES EKG Impression: NONSPECIFIC IVCD WITH LAD EKG Impression: LEFT VENTRICULAR HYPERTROPHY Electronically Signed By: Sammy Montalvo 29-Mar-2017 16:31:02
[2017-03-29] MEDS ORDERED: ALBUTEROL 200 PUFFS/18 GM MDI IH PRN (16:30)
[2017-03-30 05:18] LABS: % IMMATURE GRANULYOCYTES 0.4 % (0.0-1.1); ABSOLUTE IMMATURE GRANULOCYTES 0.02 10^3/uL (0.00-0.10); ADD DIFF? NO; ADD MORPH? NO; ADD SCAN? NO; ATYPICAL LYMPHOCYTE FLAG 0 (0-99); FRAGMENT RBC FLAG 0 (0-99); HEMATOCRIT 32.9 % (38.0-47.0); HEMOGLOBIN 10.9 g/dL (12.6-16.3); LEFT SHIFT FLG 0 (0-99); LIPEMIA HEMOLYSIS FLAG 80 (0-99); MEAN CELL HEMOGLOBIN CONCENTR. 33.1 g/dL (32.4-36.7); MEAN CELL VOLUME 93.5 fL (81.5-99.8); MEAN PLATELET VOLUME 11.5 fL (8.7-11.7); PLATELET CLUMPS FLAG 0 (0-99); PLATELET COUNT 142 10^3/uL (150-400); RED BLOOD CELL COUNT 3.52 10^6/uL (4.18-5.33); RED CELL DISTRIBUTION WIDTH 13.3 % (11.5-15.2)
[2017-03-30 05:23] LABS: INR 1.3 (0.83-1.16); PROTIME(PATIENT) 16.2 SEC (12.0-15.0)
[2017-03-30 05:27] LABS: ANION GAP 9 mEq/L (8-16); CALCIUM 9.2 mg/dL (8.5-10.4); CARBON DIOXIDE 24 mEq/l (22-31); CHLORIDE 105 mEq/L (97-110); CREATININE 1.5 mg/dL (0.6-1.0); GLOMERULAR FILTRATION RATE 33; GLUCOSE 148 mg/dL (70-100); POTASSIUM 4.2 mEq/L (3.5-5.2); SODIUM 138 mEq/L (134-144)
[2017-03-30 05:38] LABS: CREATINE KINASE-MB FRACTION 1.25 ng/mL (0.00-3.19); TROPONIN I 0.117 ng/mL (0.000-0.034)
[2017-03-30 08:15] VITALS: BP 108/55; PULSE 64; RESP 17; TEMP 98; O2SAT 94
[2017-03-30] MEDS ORDERED: LOTEPREDNOL 0.5% OPHT GEL 5GM EACHEYE SCH (09:00)
[2017-03-30] MEDS ORDERED: WARFARIN SODIUM 2 MG TAB PO SCH ×2 (09:00→16:00)
[2017-03-30] MEDS ORDERED: CHOLECALCIFEROL VIT D3 1,000 UNITS TAB PO SCH (09:00)
[2017-03-30] MEDS ORDERED: HYDROCHLOROTHIAZIDE 25 MG TAB PO SCH (09:00)
--- NOTE | 2017-03-30 09:06 | CPEKG ---
Heart Rate: 85 RR Interval: 706 P-R Interval: 160 QRSD Interval: 124 QT Interval: 420 QTC Interval: 500 P [place]: 73 QRS [place]: -85 T Wave [place]: 74 EKG Severity - ABNORMAL ECG - EKG Impression: ATRIAL-VENTRICULAR DUAL-PACED RHYTHM Electronically Signed By: Sammy Montalvo 30-Mar-2017 14:22:47
[2017-03-30] MEDS ORDERED: FUROSEMIDE 20 MG TAB PO SCH (09:45)
--- NOTE | 2017-03-30 11:52 | ECHO ---
[id number] + + [address] : : [place] [address] : : [phone] + + Adult Echocardiographic Report + -------+ :Name: Sinai MO Date: 03/30/2017 08:38 AM BP: 105/55 mmH g : : Hospital Admission Number: [id number] [place] on: 214: :: 1935 Gender: Female Height: 62 in : :Age: 81 yrs Race: WH Weight: 150 lb : :Reason For Study: S/P EP study : : BSA: 1.7 meter s2 : :History: s/p EP study : + -------+ MMode/2D Measurements \T\ Calculations IVSd: 0.97 cm RVDd: 2.8 cm FS: 37.8 % Ao root diam: LVPWd: 1.1 cm LVIDd: 4.0 cm EDV(Teich): 3.3 cm LVIDs: 2.5 cm 69.4 ml LA dimension: ESV(Teich): 3.4 cm 21.9 ml EF(Teich): 68.5 % LVLd ap4: 7.6 cm SV(MOD-sp4): EDV(MOD-sp4): 64.0 ml 95.0 ml LVLs ap4: 6.5 cm ESV(MOD-sp4): 31.0 ml EF(MOD-sp4): 67.4 % Normal Measurement Values: + + :LVIDd (3.5-5.7cm) IVSd (0.6-1.1cm) LVPWd (0.6-1.1cm) Aortic Root (2.0-3.7cm)Left Atrium (1.5-4.0cm): :LV Vol(d) (76-115ml) LV Vol(s) (29-48ml) Ejec Fraction (50-65%)PV Adiel (0.6- 1.2m/s) TV Adiel (0.4-1.0m/s) : :MV E Adiel (0.8-1.0m/s)MV A Adiel (0.3-1.0m/s)LVOT Adiel (0.7-1.2m/s) Asc Ao Adiel ( 0.9-1.8m/s) : + + Doppler Measurements \T\ Calculations MV E max adiel: Ao V2 max: LV V1 max: PA V2 max: 80.0 cm/sec 148.6 cm/sec 125.6 cm/sec 63.6 cm/sec MV A max daiel: Ao max PG: LV V1 max PG: PA max P.9 cm/sec 8.8 mmHg 6.3 mmHg 1.6 mmHg MV E/A: 0.67 MV dec time: 0.18 sec Left Ventricle The left ventricle is normal in size and function. There is normal left ventricular wall thickness. Ejection Fraction = 65%. There is Doppler evidence for diastolic dysfunction. The left ventricular ejection fraction is calculated at 68.5 %. Abnormal septal motion most likely secondary to pacemaker. Right Ventricle The right ventricle is normal in size and function. There is a pacemaker lead in the right ventricle. Atria The left atrium is mild to moderately dilated. The Left Atrial Volume is 41 ml/m2. Right atrial size is normal. There is a catheter/pacemaker lead seen in the right atrium. There was no clot seen in the IVC. Mitral Valve The mitral valve is normal in structure and function. There is mild mitral annular calcification. There is mild mitral regurgitation. Tricuspid Valve The tricuspid valve is normal in structure and function. There is trace tricuspid regurgitation. Aortic Valve The aortic valve is trileaflet. There is no aortic stenosis. There is no aortic insufficiency. Pulmonic Valve The pulmonic valve is not well visualized. There is no pulmonic valvular regurgitation. Great Vessels The aortic root is normal size. Pericardium/Pleural There is a fat pad seen. There is no pericardial effusion. Conclusion A two-dimensional transthoracic echocardiogram with M-mode and Doppler was performed. (1) Left ventricular systolic ejection fraction was normal (65%) - grossly normal wall motion ... some septal dyskinesis, query pacing artifact (2) No left ventricular hypertrophy (3) Diastolic dysfunction was present (4) Normal right ventriucular size and function - pacer lead to the RV chamber (5) Mild to moderate left atrial dilation with normal right atrial dimensions. No clot to the IVC was noted (6) Mild mitral regurgitation with mild annular calcification (7) Trileaflet aortic valve without sclerosis or insufficiency (8) Physiologic tricuspid regurgitation (9) Poor visualization of the pulmonic valve (10) In comparison to prior echocardiogram from 01-29-17, no clear changes noted. Final Reading Physician: Brittney Valenzuela signed on 03/30/2017 11:51 AM Ordering Physician: David Sheffield Performed By: Michelle Jacobs
--- NOTE | 2017-03-30 12:32 | EPPROC ---
Electrophysiology Procedure Note: CATHETER MEDIATED ABLATION OF THE AV JUNCTION Procedures performed: 42802 AV node ablation Fluoroscopy INDICATION: Atrial fibrillation, unable to rate control despite maximally tolerated medical therapy Catheters & Anesthesia: The patient arrived in the Electrophysiology Laboratory in the fasting state. Moderate sedation was administered by anesthesiology staff. The right groin and left groin area were prepped and draped in the usual sterile manner. Appropriate non-invasive blood pressure, pulse oximetry and end-tidal CO2 monitoring was established. All catheters were placed percutaneously using the modified Seldinger technique and advanced into position under fluoroscopic guidance). At baseline the patient was noted to be in SR with a mean ventricular rate of 80 bpm. A #7 [place] deflectable quadrapolar electrode catheter (2mm-5mm-2mm spacing) with 4 mm tip electrode was advanced to the right atrium. A total of 4 RF applications were delivered. RF#1 was applied in the area of the compact AV node. RF#2 was applied to the same area as RF#1. RF#3 was applied to the area of the fast AV maeve pathway. RF#4 was applied to the right midseptal tricuspid annulus. There was complete AV block after RF#3. Cessation of pacing revealed that there was junctional escape rhythm at a rate of 43bpm. Pacemaker implantation was done previously. The pacemaker was programmed to a lower rate of 80 ppm to reduce the risk of sudden associated with torsades de pointes. The lower rate will gradually be reduced to 60 ppm after 1 month . Fluoroscopically pacemaker lead positions were unchanged after procedure Pacemaker thresholds and impedances were unchanged after the procedure The catheters were removed. The patient was transferred to the cardiovascular holding area in stable condition. Vascular access sheaths were removed in the holding area. There were no apparent complications. CONCLUSIONS: Atrial fibrillation with rapid ventricular response. 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 Junctional escape rhythm at a rate of 43 bpm. No complications. Patient Problems: Problems Problem Status Onset Atrial fibrillation and flutter Acute
[2017-03-31] MEDS ORDERED: WARFARIN SODIUM 1 MG TAB PO SCH (16:00)
--- NOTE | 2017-04-01 13:07 | GDS ---
[f rep st] DISCHARGE SUMMARY ADMIT DIAGNOSES: 1. Atrial fibrillation, with planned atrial fibrillation ablation. 2. Chronic kidney disease. 3. Obstructive sleep apnea. 4. Paroxysmal atrial fibrillation. DISCHARGE DIAGNOSES: 1. Successful atrial fibrillation ablation, with no complications. 2. Pacemaker placement previously, dual-chamber device. 3. Chronic kidney disease. 4. Obstructive sleep apnea. COURSE OF HOSPITALIZATION: The patient is a patient of Dr. Jensen Nava, who has cared for her in clinic. She was referred to Dr. Sheffield for evaluation of atrial fibrillation, with consideration for Afib ablation therapy. Dr. Nava did place a dual-chamber pacemaker in early February. This was then to be followed in 3-4 weeks by AV node ablation therapy. She was in agreement with this plan, and has done well post pacemaker placement. She was seen by Dr. Sheffield , and subsequently taken to EP lab yesterday, for EP study, and subsequent successful AV node ablation. During the study, she did have complete AV block. Pacing was stopped, which revealed a junctional escape rhythm at a rate of 43 beats per minute. The pacemaker was programmed at a lower rate of 80 beats per minute to reduce the risk of sudden , associated with torsades de pointes. The lower rate will need to be gradually reduced to 60 beats per minute after [address] Sheffield will address this at her followup appointment in 2-3 weeks. She has done well post ablation. She has been up in her room, ambulating. She will stop amiodarone and continue on Coumadin. She has a device check scheduled for April 04 at 1:30 in [place]. She will follow up with Dr. Sheffield on April 26. DISCHARGE MEDICATIONS: She will go home on vitamin D3 1000 units daily, Lasix 20 mg 1 tab every second day, Coumadin 2 mg every 2 days. The amiodarone was discontinued. Hydrochlorothiazide 25 mg daily, Coumadin 1 mg every 2 days, Proventil inhaler 1 -2 puffs as needed. ALLERGIES: Flecainide. PHYSICAL EXAMINATION ON DISCHARGE: VITAL SIGNS: Blood pressure 108/55, heart rate 64 and regular, oxygen saturation 94%, temperature 36.7 Celsius. HEART: Heart rate regular. No murmurs, rubs. LUNGS: Sounds clear to auscultation. No wheezes, rales, or rhonchi. EXTREMITIES: No peripheral edema. Right groin site intact with no bleeding, induration or tenderness. Echocardiogram showed no abnormality, done on 03/30/2017. ELECTROPHYSIOLOGY NOTE: INDICATION: Atrial fibrillation, unable to rate control, despite maximal tolerated medication. Moderate sedation was used for this procedure. Pacemaker was reprogrammed during the procedure to a lower rate of 80 beats per minute to reduce the risk of sudden . The lower rate will need to be gradually reduced to 60 beats per minute after a month. CONCLUSION OF PROCEDURE: 1. Successful ablation of the AV junction, reducing complete AV block. 2. Junctional escape rhythm at a rate of 43 beats per minute. 3. No complications. DISCHARGE PLAN: 1. She will have a device check in 1 week at [place] on 04/04/2017. 2. She will follow up with Dr. Sheffield on April 26 at 11:30. 3. She will need her pacemaker rate decreased gradually down to 60 beats per minute in the next month. 4. At this time, she currently is stable for discharge. /[id number]/MODL MTDD
== END 2017-03-30 12:37 | disposition home or self-care (01) ==
LOC: FSGY 11:13 → F2W 14:35
PROVIDERS: ADMIT Internal Medicine Cardiovascular Disease; ATTEND Internal Medicine Cardiovascular Disease
DX: I48.91 Unspecified atrial fibrillation (principal); I48.92 Unspecified atrial flutter; N18.4 Chronic kidney disease, stage 4 (severe); I12.9 Hypertensive chronic kidney disease with stage 1 through stage 4 chronic kidney disease, or unspecified chronic kidney disease; G47.33 Obstructive sleep apnea (adult) (pediatric); E55.9 Vitamin D deficiency, unspecified; Z87.891 Personal history of nicotine dependence; Z80.3 Family history of malignant neoplasm of breast; Z95.0 Presence of cardiac pacemaker; Z96.652 Presence of left artificial knee joint; Z79.01 Long term (current) use of anticoagulants
CPT/HCPCS: 93005; 93306; 93623; 93650; C1732; J1644; J2370; J2704; J3010; J0461

== ENCOUNTER → 2018-04-16 | Outpatient (CLI) | payer OTHER, BC | LOC: FCPNEURO 21:00 | PROVIDERS: ATTEND Psychiatry & Neurology Sleep Medicine | DX: G47.33 Obstructive sleep apnea (adult) (pediatric) (principal); G47.61 Periodic limb movement disorder ==

== ENCOUNTER → 2018-06-27 | Outpatient (CLI) | payer OTHER, BC | LOC: BHLMT 11:30 | PROVIDERS: ATTEND Internal Medicine Cardiovascular Disease | DX: R06.09 Other forms of dyspnea (principal); I48.91 Unspecified atrial fibrillation | CPT/HCPCS: 93306-PO ==